=== PATIENT | female | born 1990 | race Caucasian/White ===

== ENCOUNTER 2016-12-20 21:46 | Emergency (ER) | payer SELFPAY ==
[2016-12-20 22:17] LABS: Urine Drugs of Abuse Note Disclamer
[2016-12-20 22:29] LABS: Bilirubin,Urine NEG (Negative); Blood,Urine NEG (Negative); Ketones,Urine NEG (Negative); Leukocyte Esterase,Urine NEG (Negative); Nitrite,Urine NEG (Negative); Protein,Urine <15 mg/dL mg/dL (Negative); Urobilinogen,Urine < 2.0 mg/dL (<2.0); WBC,Urine < 1.0 /HPF (0.0-6.0)
[2016-12-20 22:33] LABS: Eosinophils % (Auto) 1.1 % (0.0-4.3); Hematocrit 37.3 % (30.3-42.9); Hemoglobin 12.6 gm/dl (10.1-14.3); Mean Corpuscular HGB Conc 34 % (30-34); Mean Corpuscular Hemoglobin 30 pg (28-32); Mean Corpuscular Volume 90 fl (79-97); Platelet Count 289 K/mm3 (140-440); Red Blood Count 4.15 M/mm3 (3.65-5.03); Red Cell Distribution Width 13.9 % (13.2-15.2); White Blood Count 8.9 K/mm3 (4.5-11.0)
[2016-12-20 22:45] LABS: Anion Gap 21 mmol/L; BUN/Creatinine Ratio 16; Blood Urea Nitrogen 8 mg/dL (7-17); Calcium 8.7 mg/dL (8.4-10.2); Carbon Dioxide 24 mmol/L (22-30); Chloride 100.4 mmol/L (98-107); Glucose 78 mg/dL (65-100); Potassium 3.9 mmol/L (3.6-5.0); Sodium 141 mmol/L (137-145)
[2016-12-21] MEDS ORDERED: BOOSTRIX IM ONE (07:12)
[2016-12-21] MEDS ORDERED: DUONEB *Not for PRN Use IH ONE (07:15)
--- NOTE | 2016-12-21 07:17 | Emergency Department Report ---
ED Alcohol HPI - General Chief Complaint: Psych Stated Complaint: DETOX Time Seen by Provider: 12/21/16 06:58 Source: patient Mode of arrival: Ambulatory Limitations: No Limitations - History of Present Illness Initial Comments: 26-year-old female with a past medical history of alcohol abuse and asthma presents to the hospital requested alcohol detox. Last drink was prior to arrival. Patient states she fell hitting the concrete sustaining abrasions to the right side of her face. She denies LOC. She also states she ran into a [place] burst causing scratches to her neck. Patient is to daily alcohol use. Patient drinks beer daily. History of alcohol withdrawal seizures and tremors. Last rehabilitation was one month ago in [place]. Patient relocated here after [place]. Her fianc is also a patient requesting alcohol detox. Patient has ongoing right knee pain weeks. Patient feels like her knee is grinding together. Tetanus status unknown - Related Data Allergies Allergy/AdvReac Type Severity Reaction Status Date / Time peanut Allergy Rash Verified 12/20/16 22:04 ED Review of Systems ROS: Stated complaint: DETOX Other details as noted in HPI Comment: All other systems reviewed and negative Other: Constitutional: No fevers chills Eyes: No eye pain visual changes ENT: No ear pain or throat pain Neck: Denies pain Respiratory: Denies cough wheezing shortness of breath Cardiovascular: Denies chest pain, palpitations, syncope GI: Denies abdominal pain, nausea, vomiting, diarrhea : Denies dysuria Musculoskeletal: Denies back pain Skin: Denies rash, lesions, erythema Neurologic: Denies headache, numbness, weakness Psychiatric: Denies suicidal ideation, hallucinations ED Past Medical Hx - Past Medical History Previous Medical History?: Yes Hx Seizures: Yes (only once due to alcohol withdrawal) Hx Asthma: Yes Additional medical history: Cervical CA early stage, alcoholism - Surgical History Past Surgical History?: Yes Additional Surgical History: LEEP surgy - Social History Smoking Status: Current Every Day Smoker Substance Use Type: Alcohol ED Physical Exam - General Limitations: No Limitations - Other Other exam information: General: No limitations, patient is alert in no acute distress Head exam: Abrasions to right cheek and right lower face area with tenderness to palpation of the zygoma on the right Eyes exam: Normal appearance, pupils equal reactive to light, extraocular movements intact ENT: Moist mucous membrane, normal oropharynx Neck exam: Normal inspection, full range of motion, no meningismus nontender Respiratory exam: Mild right sided wheezing, no tachypnea or accessory muscle use Cardiovascular: Normal rate and rhythm, normal heart sounds Abdomen: Soft, nondistended, and nontender, with normal bowel sounds, no rebound, or guarding Extremity: Full range of motion normal inspection no deformity Back: Normal Inspection, full range of motion, no tenderness Neurologic: Alert, oriented x3, cranial nerves intact, no motor or sensory deficit Psychiatric: normal affect, normal mood Skin: Warm, dry, intact ED Course Vital Signs 12/20/16 12/21/16 12/21/16 22:04 06:36 06:38 Temperature 98.3 F Pulse Rate 92 H Pulse Rate [ Anterior Bilateral Throughout] Respiratory 18 Rate Respiratory Rate [Anterior Bilateral Throughout] Blood Pressure 114/84 125/52 Blood Pressure [Right] O2 Sat by Pulse 100 88 89 Oximetry 12/21/16 12/21/16 12/21/16 06:40 06:42 06:44 Temperature 98.5 F Pulse Rate 94 H Pulse Rate [ Anterior Bilateral Throughout] Respiratory 16 Rate Respiratory Rate [Anterior Bilateral Throughout] Blood Pressure 125/52 125/52 125/52 Blood Pressure 125/52 [Right] O2 Sat by Pulse 97 98 99 Oximetry 12/21/16 12/21/16 12/21/16 06:45 06:46 06:48 Temperature Pulse Rate Pulse Rate [ Anterior Bilateral Throughout] Respiratory Rate Respiratory Rate [Anterior Bilateral Throughout] Blood Pressure 111/77 111/77 111/77 Blood Pressure [Right] O2 Sat by Pulse 98 98 97 Oximetry 12/21/16 12/21/16 12/21/16 06:50 06:52 06:54 Temperature Pulse Rate Pulse Rate [ Anterior Bilateral Throughout] Respiratory Rate Respiratory Rate [Anterior Bilateral Throughout] Blood Pressure 111/77 111/77 111/77 Blood Pressure [Right] O2 Sat by Pulse 98 98 96 Oximetry 12/21/16 12/21/16 12/21/16 06:56 06:58 07:00 Temperature Pulse Rate Pulse Rate [ Anterior Bilateral Throughout] Respiratory Rate Respiratory Rate [Anterior Bilateral Throughout] Blood Pressure 111/77 111/77 88/51 Blood Pressure [Right] O2 Sat by Pulse 96 99 97 Oximetry 12/21/16 12/21/16 12/21/16 07:02 07:04 07:06 Temperature Pulse Rate Pulse Rate [ Anterior Bilateral Throughout] Respiratory Rate Respiratory Rate [Anterior Bilateral Throughout] Blood Pressure 88/51 88/51 125/52 Blood Pressure [Right] O2 Sat by Pulse 98 97 99 Oximetry 12/21/16 12/21/16 12/21/16 07:08 07:10 07:12 Temperature Pulse Rate Pulse Rate [ Anterior Bilateral Throughout] Respiratory Rate Respiratory Rate [Anterior Bilateral Throughout] Blood Pressure 114/95 114/95 114/95 Blood Pressure [Right] O2 Sat by Pulse 100 100 99 Oximetry 12/21/16 12/21/16 12/21/16 07:14 07:15 07:16 Temperature Pulse Rate Pulse Rate [ Anterior Bilateral Throughout] Respiratory Rate Respiratory Rate [Anterior Bilateral Throughout] Blood Pressure 114/95 106/69 106/69 Blood Pressure [Right] O2 Sat by Pulse 97 97 94 Oximetry 12/21/16 12/21/16 12/21/16 07:18 07:20 07:22 Temperature Pulse Rate Pulse Rate [ Anterior Bilateral Throughout] Respiratory Rate Respiratory Rate [Anterior Bilateral Throughout] Blood Pressure 106/69 106/69 106/69 Blood Pressure [Right] O2 Sat by Pulse 96 96 97 Oximetry 12/21/16 12/21/16 12/21/16 07:24 07:26 07:28 Temperature Pulse Rate Pulse Rate [ 98 H Anterior Bilateral Throughout] Respiratory Rate Respiratory 16 Rate [Anterior Bilateral Throughout] Blood Pressure 106/69 106/69 106/69 Blood Pressure [Right] O2 Sat by Pulse 97 96 100 Oximetry 12/21/16 12/21/16 12/21/16 07:30 07:32 07:34 Temperature Pulse Rate Pulse Rate [ Anterior Bilateral Throughout] Respiratory Rate Respiratory Rate [Anterior Bilateral Throughout] Blood Pressure 110/76 110/76 110/76 Blood Pressure [Right] O2 Sat by Pulse 100 100 100 Oximetry 12/21/16 12/21/16 12/21/16 07:36 07:38 07:40 Temperature Pulse Rate Pulse Rate [ 98 H Anterior Bilateral Throughout] Respiratory Rate Respiratory 16 Rate [Anterior Bilateral Throughout] Blood Pressure 110/76 110/76 110/76 Blood Pressure [Right] O2 Sat by Pulse 100 100 99 Oximetry 12/21/16 12/21/16 12/21/16 07:42 07:44 07:45 Temperature Pulse Rate Pulse Rate [ Anterior Bilateral Throughout] Respiratory Rate Respiratory Rate [Anterior Bilateral Throughout] Blood Pressure 110/76 110/76 106/71 Blood Pressure [Right] O2 Sat by Pulse 99 99 99 Oximetry 12/21/16 12/21/16 12/21/16 07:46 08:22 08:24 Temperature Pulse Rate Pulse Rate [ Anterior Bilateral Throughout] Respiratory Rate Respiratory Rate [Anterior Bilateral Throughout] Blood Pressure 106/71 106/71 106/71 Blood Pressure [Right] O2 Sat by Pulse 99 99 98 Oximetry 12/21/16 12/21/16 12/21/16 08:26 08:28 08:30 Temperature Pulse Rate Pulse Rate [ Anterior Bilateral Throughout] Respiratory Rate Respiratory Rate [Anterior Bilateral Throughout] Blood Pressure 106/71 106/71 106/71 Blood Pressure [Right] O2 Sat by Pulse 99 100 98 Oximetry 12/21/16 12/21/16 12/21/16 08:32 08:34 08:36 Temperature Pulse Rate Pulse Rate [ Anterior Bilateral Throughout] Respiratory Rate Respiratory Rate [Anterior Bilateral Throughout] Blood Pressure 106/71 106/71 106/71 Blood Pressure [Right] O2 Sat by Pulse 98 98 98 Oximetry 12/21/16 12/21/16 08:38 08:40 Temperature Pulse Rate Pulse Rate [ Anterior Bilateral Throughout] Respiratory Rate Respiratory Rate [Anterior Bilateral Throughout] Blood Pressure 106/71 110/70 Blood Pressure [Right] O2 Sat by Pulse 98 97 Oximetry - Consultations Consultation #1: 12/21/16 08:20 mental health consulted requested ED Medical Decision Making - Lab Data Result diagrams: 12/20/16 22:15 12/20/16 22:15 Lab Results 12/20/16 12/20/16 12/20/16 Range/Units 22:02 22:02 22:15 WBC (4.5-11.0) K/mm3 RBC (3.65-5.03) M/mm3 Hgb (10.1-14.3) gm/dl Hct (30.3-42.9) % MCV (79-97) fl MCH (28-32) pg MCHC (30-34) % RDW (13.2-15.2) % Plt Count (140-440) K/mm3 Lymph % (Auto) (13.4-35.0) % [place] % (Auto) (0.0-7.3) % Eos % (Auto) (0.0-4.3) % Baso % (Auto) (0.0-1.8) % Lymph # (1.2-5.4) K/mm3 [place] # (0.0-0.8) K/mm3 Eos # (0.0-0.4) K/mm3 Baso # (0.0-0.1) K/mm3 Seg Neutrophils % (40.0-70.0) % Seg Neutrophils # (1.8-7.7) K/mm3 Sodium 141 (137-145) mmol/L Potassium 3.9 (3.6-5.0) mmol/L Chloride 100.4 (98-107) mmol/L Carbon Dioxide 24 (22-30) mmol/L Anion Gap 21 mmol/L BUN 8 (7-17) mg/dL Creatinine 0.5 L (0.7-1.2) mg/dL Estimated GFR > 60 ml/min BUN/Creatinine Ratio 16 % Glucose 78 (65-100) mg/dL Calcium 8.7 (8.4-10.2) mg/dL Magnesium (1.7-2.3) mg/dL Total Bilirubin (0.1-1.2) mg/dL Direct Bilirubin (0-0.2) mg/dL AST (5-40) units/L ALT (7-56) units/L Alkaline Phosphatase (35-129) units/L Total Protein (6.3-8.2) g/dL Albumin (3.9-5) g/dL Albumin/Globulin Ratio % HCG, Qual (Negative) Urine Color Straw (Yellow) Urine Turbidity Clear (Clear) Urine pH 5.0 (5.0-7.0) Ur Specific [place] 1.003 (1.003-1.030) Urine Protein <15 mg/dl (Negative) mg/dL Urine Glucose (UA) Neg (Negative) mg/dL Urine Ketones Neg (Negative) mg/dL Urine Blood Neg (Negative) Urine Nitrite Neg (Negative) Urine Bilirubin Neg (Negative) Urine Urobilinogen < 2.0 (<2.0) mg/dL Ur Leukocyte Esterase Neg (Negative) Urine WBC (Auto) < 1.0 (0.0-6.0) /HPF Urine RBC (Auto) 1.0 (0.0-6.0) /HPF U Epithel Cells (Auto) 1.0 (0-13.0) /HPF Urine Opiates Screen Presumptive negative Urine Methadone Screen Presumptive negative Ur Barbiturates Screen Presumptive negative Ur Phencyclidine Scrn Presumptive negative Ur Amphetamines Screen Presumptive negative U Benzodiazepines Scrn Presumptive negative Urine Cocaine Screen Presumptive negative U Marijuana (THC) Screen Presumptive negative Drugs of Abuse Note Disclamer Plasma/Serum Alcohol (0-0.07) gm% 12/20/16 12/20/16 12/20/16 Range/Units 22:15 22:15 22:15 WBC 8.9 (4.5-11.0) K/mm3 RBC 4.15 (3.65-5.03) M/mm3 Hgb 12.6 (10.1-14.3) gm/dl Hct 37.3 (30.3-42.9) % MCV 90 (79-97) fl MCH 30 (28-32) pg MCHC 34 (30-34) % RDW 13.9 (13.2-15.2) % Plt Count 289 (140-440) K/mm3 Lymph % (Auto) 29.6 (13.4-35.0) % [place] % (Auto) 6.8 (0.0-7.3) % Eos % (Auto) 1.1 (0.0-4.3) % Baso % (Auto) 1.0 (0.0-1.8) % Lymph # 2.6 (1.2-5.4) K/mm3 [place] # 0.6 (0.0-0.8) K/mm3 Eos # 0.1 (0.0-0.4) K/mm3 Baso # 0.1 (0.0-0.1) K/mm3 Seg Neutrophils % 61.5 (40.0-70.0) % Seg Neutrophils # 5.5 (1.8-7.7) K/mm3 Sodium (137-145) mmol/L Potassium (3.6-5.0) mmol/L Chloride (98-107) mmol/L Carbon Dioxide (22-30) mmol/L Anion Gap mmol/L BUN (7-17) mg/dL Creatinine (0.7-1.2) mg/dL Estimated GFR ml/min BUN/Creatinine Ratio % Glucose (65-100) mg/dL Calcium (8.4-10.2) mg/dL Magnesium (1.7-2.3) mg/dL Total Bilirubin (0.1-1.2) mg/dL Direct Bilirubin (0-0.2) mg/dL AST (5-40) units/L ALT (7-56) units/L Alkaline Phosphatase (35-129) units/L Total Protein (6.3-8.2) g/dL Albumin (3.9-5) g/dL Albumin/Globulin Ratio % HCG, Qual Negative (Negative) Urine Color (Yellow) Urine Turbidity (Clear) Urine pH (5.0-7.0) Ur Specific [place] (1.003-1.030) Urine Protein (Negative) mg/dL Urine Glucose (UA) (Negative) mg/dL Urine Ketones (Negative) mg/dL Urine Blood (Negative) Urine Nitrite (Negative) Urine Bilirubin (Negative) Urine Urobilinogen (<2.0) mg/dL Ur Leukocyte Esterase (Negative) Urine WBC (Auto) (0.0-6.0) /HPF Urine RBC (Auto) (0.0-6.0) /HPF U Epithel Cells (Auto) (0-13.0) /HPF Urine Opiates Screen Urine Methadone Screen Ur Barbiturates Screen Ur Phencyclidine Scrn Ur Amphetamines Screen U Benzodiazepines Scrn Urine Cocaine Screen U Marijuana (THC) Screen Drugs of Abuse Note Plasma/Serum Alcohol 0.35 H (0-0.07) gm% 12/21/16 12/21/16 Range/Units 07:02 07:02 WBC (4.5-11.0) K/mm3 RBC (3.65-5.03) M/mm3 Hgb (10.1-14.3) gm/dl Hct (30.3-42.9) % MCV (79-97) fl MCH (28-32) pg MCHC (30-34) % RDW (13.2-15.2) % Plt Count (140-440) K/mm3 Lymph % (Auto) (13.4-35.0) % [place] % (Auto) (0.0-7.3) % Eos % (Auto) (0.0-4.3) % Baso % (Auto) (0.0-1.8) % Lymph # (1.2-5.4) K/mm3 [place] # (0.0-0.8) K/mm3 Eos # (0.0-0.4) K/mm3 Baso # (0.0-0.1) K/mm3 Seg Neutrophils % (40.0-70.0) % Seg Neutrophils # (1.8-7.7) K/mm3 Sodium (137-145) mmol/L Potassium (3.6-5.0) mmol/L Chloride (98-107) mmol/L Carbon Dioxide (22-30) mmol/L Anion Gap mmol/L BUN (7-17) mg/dL Creatinine (0.7-1.2) mg/dL Estimated GFR ml/min BUN/Creatinine Ratio % Glucose (65-100) mg/dL Calcium (8.4-10.2) mg/dL Magnesium 1.90 (1.7-2.3) mg/dL Total Bilirubin 0.30 (0.1-1.2) mg/dL Direct Bilirubin < 0.2 (0-0.2) mg/dL AST 21 (5-40) units/L ALT 10 (7-56) units/L Alkaline Phosphatase 88 (35-129) units/L Total Protein 7.0 (6.3-8.2) g/dL Albumin 4.3 (3.9-5) g/dL Albumin/Globulin Ratio 1.6 % HCG, Qual (Negative) Urine Color (Yellow) Urine Turbidity (Clear) Urine pH (5.0-7.0) Ur Specific [place] (1.003-1.030) Urine Protein (Negative) mg/dL Urine Glucose (UA) (Negative) mg/dL Urine Ketones (Negative) mg/dL Urine Blood (Negative) Urine Nitrite (Negative) Urine Bilirubin (Negative) Urine Urobilinogen (<2.0) mg/dL Ur Leukocyte Esterase (Negative) Urine WBC (Auto) (0.0-6.0) /HPF Urine RBC (Auto) (0.0-6.0) /HPF U Epithel Cells (Auto) (0-13.0) /HPF Urine Opiates Screen Urine Methadone Screen Ur Barbiturates Screen Ur Phencyclidine Scrn Ur Amphetamines Screen U Benzodiazepines Scrn Urine Cocaine Screen U Marijuana (THC) Screen Drugs of Abuse Note Plasma/Serum Alcohol 0.14 H (0-0.07) gm% - Radiology Data Radiology results: report reviewed CT head: No acute findings CT facial bones: No acute sinus Right knee x-ray: Normal - Medical Decision Making Patient is medically clear what alcohol is below 200. She would need to be monitored for alcohol withdrawal symptoms. Mental health evaluation has been requested to determine if patient meets criteria for inpatient alcohol detox Patient received mental health evaluation and was determined that patient does not meet criteria for inpatient detox and has been provided outpatient resources with [facility] and [facility] Patient's ride will be called to pick patient up. No signs of withdrawal prior to d/c Patient received by mouth thiamine and folate prior to DC as well as a tetanus shot - Differential Diagnosis ICH, facial fracture, abrasions, alcohol intoxication Critical Care Time: No Critical care attestation.: If time is entered above; I have spent that time in minutes in the direct care of this critically ill patient, excluding procedure time. ED Disposition Clinical Impression: Alcohol abuse, Abrasion of face, Chronic pain of right knee, Fall Disposition: DC-01 TO HOME OR SELFCARE Is pt being admited?: No Does the pt Need Aspirin: No Condition: Stable Instructions: Abuse of Alcohol (ED), Abrasion (ED), Knee Pain (ED) Additional Instructions: Follow-up as an outpatient for outpatient alcohol detox. Resources have been provided to you. Return if symptoms worsen Referrals: [facility] [Outside] - 3-5 Days [facility] [Other] - 3-5 Days (resources provided by mental health ) [facility] [Provider Group] - 3-5 Days Time of Disposition: 10:27
[2016-12-21] MEDS ORDERED: FOLVITE PO ONE (07:20)
[2016-12-21] MEDS ORDERED: VITAMIN B-1 PO ONE (07:20)
--- NOTE | 2016-12-21 07:30 | XRay Report ---
RIGHT KNEE, 2 views: History: Right knee pain. The bony architecture is intact without evidence of fracture or dislocation. No significant soft tissue abnormality is seen. IMPRESSION: Normal right knee.
[2016-12-21 07:35] LABS: Alanine Aminotransferase 10 units/L (7-56); Albumin 4.3 g/dL (3.9-5); Albumin/Globulin Ratio 1.6 %; Alkaline Phosphatase 88 units/L (35-129)
[2016-12-21 07:36] LABS: Bilirubin,Direct < 0.2 mg/dL (0-0.2)
--- NOTE | 2016-12-21 08:15 | Cat Scan Report ---
CT HEAD WITHOUT CONTRAST: HISTORY: Injury, fall. Serial contiguous axial images were obtained through the cranium. Intravenous contrast material was not administered. The ventricles are normal in size and appearance. There is no mass effect or midline shift. No areas of abnormally increased or decreased attenuation are seen. No mass lesion is seen. The mastoid air cells and visualized portions of the sinuses are normal. IMPRESSION: Cranial CT scan within normal limits.
--- NOTE | 2016-12-21 08:17 | Cat Scan Report ---
CT FACIAL BONES WITHOUT CONTRAST: HISTORY: Facial injury. TECHNIQUE: Helical CT images with sagittal and coronal CT reformations. FINDINGS: All paranasal sinuses are clear. No sinus wall fracture, fluid level or opacification. The orbital cavities are symmetric and intact. The mandible is intact. The skull base and upper cervical spine demonstrate no evidence for acute injury. IMPRESSION: Unremarkable CT of the facial bones.
[2016-12-21 08:43] VITALS: BP 110/70
[2016-12-21] MEDS ORDERED: ATIVAN PO PRN ×2 (09:00)
== END 2016-12-21 11:37 | disposition home or self-care (01) ==
LOC: ED 21:46
DX: S00.81XA Abrasion of other part of head, initial encounter (principal); G89.29 Other chronic pain; F10.10 Alcohol abuse, uncomplicated; M25.561 Pain in right knee; Z91.010 Allergy to peanuts; R56.9 Unspecified convulsions; J45.909 Unspecified asthma, uncomplicated; F17.200 Nicotine dependence, unspecified, uncomplicated; W18.00XA Striking against unspecified object with subsequent fall, initial encounter; Y93.89 Activity, other specified; Y92.89 Other specified places as the place of occurrence of the external cause; Y99.8 Other external cause status
CPT/HCPCS: 36415; 70450; 70486; 73560; 80048; 80074; 80307; 81001; 83735; 84703; 85025; 90471; 90715; 94640; 99285; G0480; 80320

== ENCOUNTER 2016-12-22 08:19 | Emergency (ER) | payer SELFPAY ==
[2016-12-22 08:26] VITALS: BP 131/88
[2016-12-22 08:41] LABS: Basophils % (Auto) 0.9 % (0.0-1.8); Hematocrit 36.8 % (30.3-42.9); Hemoglobin 11.8 gm/dl (10.1-14.3); Mean Corpuscular HGB Conc 32 % (30-34); Mean Corpuscular Hemoglobin 29 pg (28-32); Mean Corpuscular Volume 91 fl (79-97); Platelet Count 286 K/mm3 (140-440); Red Blood Count 4.04 M/mm3 (3.65-5.03); Red Cell Distribution Width 14.1 % (13.2-15.2); White Blood Count 10.4 K/mm3 (4.5-11.0)
[2016-12-22 08:59] LABS: Anion Gap 21 mmol/L; BUN/Creatinine Ratio 15; Blood Urea Nitrogen 6 mg/dL (7-17); Calcium 8.3 mg/dL (8.4-10.2); Carbon Dioxide 24 mmol/L (22-30); Chloride 93.9 mmol/L (98-107); Glucose 156 mg/dL (65-100); Potassium 4.5 mmol/L (3.6-5.0); Sodium 134 mmol/L (137-145)
== END 2016-12-22 08:30 | disposition left against medical advice (07) ==
LOC: ED 08:19
DX: Z53.21 Procedure and treatment not carried out due to patient leaving prior to being seen by health care provider (principal)
CPT/HCPCS: 36415; 80048; 84703; 85025; G0480; 80320

== ENCOUNTER 2017-10-08 00:30 | Inpatient (IN) | payer SELFPAY ==
[2017-10-08 02:56] LABS: Basophils % (Auto) 0.3 % (0.0-1.8); Hematocrit 42.4 % (30.3-42.9); Hemoglobin 14.2 gm/dl (10.1-14.3); Lymphocytes # (Auto) 0.6 K/mm3 (1.2-5.4); Lymphocytes % (Auto) 6.6 % (13.4-35.0); Mean Corpuscular HGB Conc 34 % (30-34); Mean Corpuscular Hemoglobin 29 pg (28-32); Mean Corpuscular Volume 86 fl (79-97); Monocytes # (Auto) 0.5 K/mm3 (0.0-0.8); Monocytes % (Auto) 5.7 % (0.0-7.3); Red Blood Count 4.91 M/mm3 (3.65-5.03); Red Cell Distribution Width 16.3 % (13.2-15.2)
[2017-10-08 02:57] LABS: Platelet Count 97 K/mm3 (140-440)
[2017-10-08 03:20] LABS: Albumin 4.6 g/dL (3.9-5); BUN/Creatinine Ratio 8; Blood Urea Nitrogen 4 mg/dL (7-17); Calcium 9.1 mg/dL (8.4-10.2); Hemolysis Index 94
[2017-10-08 03:32] LABS: Alanine Aminotransferase 50 units/L (7-56)
[2017-10-08] MEDS ORDERED: NACL 0.9% 1000 ML 1,000 ML IV ONE (05:05)
[2017-10-08] MEDS ORDERED: VITAMIN B-1 100 MG, FOLVITE 1 MG, INFUVITE 10 ML in NACL 0.9% 1000 ML 1,000 ML IV ONE (06:19)
[2017-10-08] MEDS ORDERED: ATIVAN IV PRN ×3 (06:19)
--- NOTE | 2017-10-08 06:23 | Emergency Department Report ---
ED General Adult HPI - General Chief complaint: Seizure Stated complaint: SEIZURE Time Seen by Provider: 10/08/17 06:12 Source: patient, EMS (EMS notes are reviewed), RN notes reviewed, old records reviewed Mode of arrival: Stretcher Limitations: No Limitations - History of Present Illness Initial comments: This is a 27-year-old female with a history of alcohol abuse, bipolar, alcohol withdrawal seizure, who is brought to the hospital by EMS for seizure. Patient reports drinking alcohol every day. She reports her last drink was yesterday. She thinks that she passed out or had a seizure. She is not certain. She feels very shaky at this time. She denies severe headache, neck pain, chest pain, abdominal pain, shortness of breath, urinary symptoms. As per EMS documentation, patient was found laying supine in the bed, and appeared to be lethargic and postictal. Apparently the patient's [id number] stated she was going through delirium tremens. Family further informed EMS that this is happened approximately 2 years ago. The patient reports that she feels shaky and generally weak. Her symptoms are constant, they worse with attempted physical exertion and decreased with rest. She is not homicidal or suicidal. She is interested in detox. She is amenable to hospitalization. -: Sudden Severity scale (0 -10): 0 Improves with: none Worsens with: none Associated Symptoms: malaise, seizure, syncope, weakness. denies: confusion, chest pain, cough, diaphoresis, fever/chills - Related Data Allergies Allergy/AdvReac Type Severity Reaction Status Date / Time peanut Allergy Rash Verified 12/20/16 22:04 ED Review of Systems ROS: Stated complaint: SEIZURE Other details as noted in HPI Constitutional: malaise Eyes: denies: eye discharge ENT: denies: epistaxis Respiratory: denies: cough Cardiovascular: syncope. denies: chest pain Gastrointestinal: denies: abdominal pain, vomiting Genitourinary: denies: dysuria Musculoskeletal: back pain Skin: denies: lesions Neurological: weakness Psychiatric: anxiety. denies: homicidal thoughts, suicidal thoughts Hematological/Lymphatic: easy bruising ED Past Medical Hx - Past Medical History Hx Seizures: Yes (only once due to alcohol withdrawal) Hx Asthma: Yes Additional medical history: Cervical CA early stage, alcoholism - Surgical History Additional Surgical History: LEEP surgy - Social History Smoking Status: Current Every Day Smoker Substance Use Type: None ED Physical Exam - General Limitations: No Limitations General appearance: alert, in no apparent distress - Head Head exam: Present: atraumatic, normocephalic - Eye Eye exam: Present: normal appearance, PERRL, EOMI. Absent: nystagmus - ENT ENT exam: Present: mucous membranes dry, normal external ear exam, other ( active tongue fasciculations noted) - Neck Neck exam: Present: normal inspection, full ROM. Absent: tenderness, meningismus - Respiratory Respiratory exam: Present: normal lung sounds bilaterally. Absent: respiratory distress - Cardiovascular Cardiovascular Exam: Present: normal rhythm, tachycardia, normal heart sounds. Absent: systolic murmur, diastolic murmur, rubs, gallop - GI/Abdominal GI/Abdominal exam: Present: soft, normal bowel sounds. Absent: distended, tenderness, guarding, rebound, rigid, pulsatile mass - Extremities Exam Extremities exam: Present: full ROM (ecchymosis noted in various stages of healing.), other (2+ pulses noted in the bilateral upper, lower extremities. Compartments soft. No long bony tenderness. The pelvis is stable.). Absent: pedal edema, joint swelling, calf tenderness - Back Exam Back exam: Present: normal inspection, full ROM. Absent: tenderness, CVA tenderness (R), paraspinal tenderness, vertebral tenderness - Neurological Exam Neurological exam: Present: alert, oriented X3, CN II-XII intact, other ( Extraocular movements intact. Tongue midline. No facial droop. Facial sensation intact to light touch in the V1, V2, V3 distribution bilaterally. 5 and 5 strength in 4 extremities.. Sensation is intact to light touch in 4 extremities.). Absent: motor sensory deficit - Psychiatric Psychiatric exam: Present: anxious. Absent: homicidal ideation, suicidal ideation - Skin Skin exam: Present: warm, ecchymosis ED Course Vital Signs 10/08/17 10/08/17 10/08/17 02:33 05:12 05:27 Temperature 99.1 F 98.9 F Pulse Rate 99 H 87 Respiratory 18 20 20 Rate Blood Pressure 122/93 Blood Pressure 101/64 [Left] O2 Sat by Pulse 99 100 100 Oximetry 10/08/17 10/08/17 06:36 07:16 Temperature 99.0 F Pulse Rate 78 81 Respiratory 20 20 Rate Blood Pressure Blood Pressure 102/60 116/87 [Left] O2 Sat by Pulse 97 100 Oximetry ED Medical Decision Making - Lab Data Result diagrams: 10/08/17 02:44 10/08/17 02:44 Vital Signs 10/08/17 10/08/17 10/08/17 02:33 05:12 05:27 Temperature 99.1 F 98.9 F Pulse Rate 99 H 87 Respiratory 18 20 20 Rate Blood Pressure 122/93 Blood Pressure 101/64 [Left] O2 Sat by Pulse 99 100 100 Oximetry 10/08/17 10/08/17 06:36 07:16 Temperature 99.0 F Pulse Rate 78 81 Respiratory 20 20 Rate Blood Pressure Blood Pressure 102/60 116/87 [Left] O2 Sat by Pulse 97 100 Oximetry Lab Results 10/08/17 10/08/17 10/08/17 Range/Units 02:44 02:44 02:44 WBC 9.0 (4.5-11.0) K/mm3 RBC 4.91 (3.65-5.03) M/mm3 Hgb 14.2 (10.1-14.3) gm/dl Hct 42.4 (30.3-42.9) % MCV 86 (79-97) fl MCH 29 (28-32) pg MCHC 34 (30-34) % RDW 16.3 H (13.2-15.2) % Plt Count 97 L (140-440) K/mm3 Lymph % (Auto) 6.6 L (13.4-35.0) % [place] % (Auto) 5.7 (0.0-7.3) % Eos % (Auto) 0.0 (0.0-4.3) % Baso % (Auto) 0.3 (0.0-1.8) % Lymph # 0.6 L (1.2-5.4) K/mm3 [place] # 0.5 (0.0-0.8) K/mm3 Eos # 0.0 (0.0-0.4) K/mm3 Baso # 0.0 (0.0-0.1) K/mm3 Seg Neutrophils % 87.4 H (40.0-70.0) % Seg Neutrophils # 7.9 H (1.8-7.7) K/mm3 PT (12.2-14.9) Sec. INR (0.87-1.13) APTT (24.2-36.6) Sec. Sodium 128 L (137-145) mmol/L Potassium 5.1 H (3.6-5.0) mmol/L Chloride 77.4 L (98-107) mmol/L Carbon Dioxide 31 H (22-30) mmol/L Anion Gap 25 mmol/L BUN 4 L (7-17) mg/dL Creatinine 0.5 L (0.7-1.2) mg/dL Estimated GFR > 60 ml/min BUN/Creatinine Ratio 8 % Glucose 107 H (65-100) mg/dL Lactic Acid (0.7-2.0) mmol/L Calcium 9.1 (8.4-10.2) mg/dL Total Bilirubin 1.70 H (0.1-1.2) mg/dL AST 269 H (5-40) units/L ALT 50 (7-56) units/L Alkaline Phosphatase 135 H (35-129) units/L Ammonia (25-60) umol/L Total Protein 8.3 H (6.3-8.2) g/dL Albumin 4.6 (3.9-5) g/dL Albumin/Globulin Ratio 1.2 % HCG, Qual (Negative) Plasma/Serum Alcohol 0.02 (0-0.07) % 10/08/17 10/08/17 10/08/17 Range/Units 02:44 06:42 06:42 WBC (4.5-11.0) K/mm3 RBC (3.65-5.03) M/mm3 Hgb (10.1-14.3) gm/dl Hct (30.3-42.9) % MCV (79-97) fl MCH (28-32) pg MCHC (30-34) % RDW (13.2-15.2) % Plt Count (140-440) K/mm3 Lymph % (Auto) (13.4-35.0) % [place] % (Auto) (0.0-7.3) % Eos % (Auto) (0.0-4.3) % Baso % (Auto) (0.0-1.8) % Lymph # (1.2-5.4) K/mm3 [place] # (0.0-0.8) K/mm3 Eos # (0.0-0.4) K/mm3 Baso # (0.0-0.1) K/mm3 Seg Neutrophils % (40.0-70.0) % Seg Neutrophils # (1.8-7.7) K/mm3 PT 12.8 (12.2-14.9) Sec. INR 0.92 (0.87-1.13) APTT 22.5 L (24.2-36.6) Sec. Sodium (137-145) mmol/L Potassium (3.6-5.0) mmol/L Chloride (98-107) mmol/L Carbon Dioxide (22-30) mmol/L Anion Gap mmol/L BUN (7-17) mg/dL Creatinine (0.7-1.2) mg/dL Estimated GFR ml/min BUN/Creatinine Ratio % Glucose (65-100) mg/dL Lactic Acid 1.00 (0.7-2.0) mmol/L Calcium (8.4-10.2) mg/dL Total Bilirubin (0.1-1.2) mg/dL AST (5-40) units/L ALT (7-56) units/L Alkaline Phosphatase (35-129) units/L Ammonia (25-60) umol/L Total Protein (6.3-8.2) g/dL Albumin (3.9-5) g/dL Albumin/Globulin Ratio % HCG, Qual Negative (Negative) Plasma/Serum Alcohol (0-0.07) % 10/08/17 Range/Units 06:42 WBC (4.5-11.0) K/mm3 RBC (3.65-5.03) M/mm3 Hgb (10.1-14.3) gm/dl Hct (30.3-42.9) % MCV (79-97) fl MCH (28-32) pg MCHC (30-34) % RDW (13.2-15.2) % Plt Count (140-440) K/mm3 Lymph % (Auto) (13.4-35.0) % [place] % (Auto) (0.0-7.3) % Eos % (Auto) (0.0-4.3) % Baso % (Auto) (0.0-1.8) % Lymph # (1.2-5.4) K/mm3 [place] # (0.0-0.8) K/mm3 Eos # (0.0-0.4) K/mm3 Baso # (0.0-0.1) K/mm3 Seg Neutrophils % (40.0-70.0) % Seg Neutrophils # (1.8-7.7) K/mm3 PT (12.2-14.9) Sec. INR (0.87-1.13) APTT (24.2-36.6) Sec. Sodium (137-145) mmol/L Potassium (3.6-5.0) mmol/L Chloride (98-107) mmol/L Carbon Dioxide (22-30) mmol/L Anion Gap mmol/L BUN (7-17) mg/dL Creatinine (0.7-1.2) mg/dL Estimated GFR ml/min BUN/Creatinine Ratio % Glucose (65-100) mg/dL Lactic Acid (0.7-2.0) mmol/L Calcium (8.4-10.2) mg/dL Total Bilirubin (0.1-1.2) mg/dL AST (5-40) units/L ALT (7-56) units/L Alkaline Phosphatase (35-129) units/L Ammonia 27.0 (25-60) umol/L Total Protein (6.3-8.2) g/dL Albumin (3.9-5) g/dL Albumin/Globulin Ratio % HCG, Qual (Negative) Plasma/Serum Alcohol (0-0.07) % - EKG Data 10/08/17 07:59 Normal sinus, 83 beats per minute, normal axis, QTC prolonged, abnormal EKG, not a STEMI - Radiology Data Radiology results: report reviewed, image reviewed X-ray of the chest is negative for acute disease. Noncontrast CT scan of the brain is negative. - Medical Decision Making Differential diagnosis, including but not limited to: Alcohol dependence, alcohol withdrawal seizure, alcohol withdrawal, electrolyte derangement, beer podomania Assessment and plan: 27-year-old female with alcohol withdrawal seizure, active fasciculations, tremulous, clinically sober at this time, in alcohol withdrawal. Does not require 1013 at this time. Patient will be started on the ciwa protocol Hyponatremia likely secondary to beer consumption and dehydration. EKG also shows QTC prolongation. Noncontrast CT scan of the brain is negative. Low- grade temperature appreciated, urinalysis is pending at this time. Case was presented to the Hospital physician, Dr. Perea, who has graciously accepted the patient to the medical service. Psychiatry consult is pending to assist with recommendations for alcohol withdrawal. Critical care attestation.: If time is entered above; I have spent that time in minutes in the direct care of this critically ill patient, excluding procedure time. ED Disposition Clinical Impression: Hyponatremia Alcohol withdrawal seizure Qualifiers: Complication of substance-induced condition: with unspecified complication Qualified Code(s): F10.239 - Alcohol dependence with withdrawal, unspecified Disposition: 09 OP ADMIT IP TO THIS HOSP Is pt being admited?: Yes Condition: Good Referrals: PRIMARY CARE,MD [Primary Care Provider] - 3-5 Days
--- NOTE | 2017-10-08 06:49 | XRay Report ---
FINAL REPORT EXAM: XR CHEST 1V AP HISTORY: etoh withdrawl seizure ? pneuimoan TECHNIQUE: AP portable view(s) of the chest obtained. PRIORS: None. FINDINGS: No mediastinal shift. Cardiac silhouette is not enlarged. No pneumothorax, effusion, or focal pulmonary opacity identified. No acute skeletal findings. IMPRESSION: No acute pulmonary finding identified.
[2017-10-08 07:05] LABS: INR 0.92 (0.87-1.13); Partial Thromboplastin Time 22.5 Sec. (24.2-36.6)
--- NOTE | 2017-10-08 07:44 | Cat Scan Report ---
CT HEAD WITHOUT CONTRAST: HISTORY: Seizure. TECHNIQUE: Sequential 2.5mm CT images. COMPARISON: 12/21/16. FINDINGS: Cerebral Parenchyma: Within normal limits. Cerebellum: Within normal limits. Brainstem: Within normal limits. Ventricles: Normal. Sella: Normal. Extra-axial spaces: Normal. Basal Cisterns: Normal. Intracranial Hemorrhage: None. Midline Shift: None. Calvarium: Normal. Sinuses: Normal. Mastoid Air Cells: Normal. Visualized Orbits: Normal. IMPRESSION: Cranial CT scan within normal limits.
[2017-10-08] MEDS ORDERED: MOTRIN PO PRN (09:52)
[2017-10-08] MEDS ORDERED: SODIUM CHLORIDE FLUSH SYRINGE 10 ML IV PRN (09:52)
[2017-10-08] MEDS ORDERED: ZOFRAN IV PRN (09:52)
[2017-10-08] MEDS ORDERED: ALUM-MAG HYDROX-SIMETH 200-200-20MG/5ML PO PRN (10:00)
[2017-10-08 10:30] LABS: Bilirubin,Urine NEG (Negative); Blood,Urine SM (Negative); Color,Urine Yellow (Yellow); Mucus,Urine FEW /HPF; Protein,Urine <15 mg/dL mg/dL (Negative); Urobilinogen,Urine < 2.0 mg/dL (<2.0)
[2017-10-08 10:40] LABS: Amphetamine Screen,Urine PRESUMPTIVE NEGATIVE; Benzodiazepines Screen,Urine PRESUMPTIVE NEGATIVE; Methadone Screen,Urine PRESUMPTIVE NEGATIVE; Opiate Screen,Urine PRESUMPTIVE NEGATIVE
[2017-10-08] MEDS: SODIUM CHLORIDE FLUSH SYRINGE 10 ML IV SCH ×2 (10:55→22:04)
[2017-10-08 11:06] LABS: Cannabinoid Screen,Urine PRESUMPTIVE POSITIVE; Cocaine Screen,Urine PRESUMPTIVE POSITIVE
[2017-10-08] MEDS: LIBRIUM PO SCH ×3 (11:08→21:15)
[2017-10-08] MEDS: PEPCID PO SCH ×2 (11:08→21:15)
--- NOTE | 2017-10-08 11:34 | Ultrasound Report ---
FINAL REPORT EXAM: US ABDOMEN LIMITED HISTORY: ELEVATED LFT LEVELS TECHNIQUE: Limited abdomen ultrasound. PRIORS: None currently available. FINDINGS: Liver: Liver is echogenic. This may represent fatty infiltration or hepatocellular disease. No distinct lesions. Gallbladder: No gallstones or sludge. Wall is within normal limits. 5.1 mm common bile duct is within normal limits. Pancreas: Provided images are unremarkable. Right kidney: 9.3 cm. Echogenic focus in the upper right kidney measures 6.6 mm. No hydronephrosis. Proximal aorta measures 1.7 cm and is within normal limits. IVC is patent. No free fluid. IMPRESSION: Fatty liver. Nonobstructing right renal stone. Differential diagnosis includes prominent pelvic fat.
--- NOTE | 2017-10-08 12:59 | History and Physical Report ---
History of Present Illness Date of examination: 10/08/17 Date of admission: 10/08/17 09:52 Chief complaint: Twitching History of present illness: Patient is a 27 year old female with history of bipolar disorder and alcohol abuse who was brought to the ED via EMS on account of twitching. Patient admits to drinking heavily daily and her last drink was yesterday. EMS was called because family member thought she was going into DT. She has associated nausea without vomiting and syncopal episode. She denies headaches, dizziness, chest pain, shortness of breath, palpitation, fever, chills or cough. No abdominal pain, constipation, diarrhea, dysuria or frequency. Past History Past Medical History: seizures, other (bipolar disorder, alcohol abuse, asthma, early stage cervical ca) Past Surgical History: No surgical history Social history: smoking (1 pack of cigarette per day since 10 years old), alcohol abuse (six bottles of 24 ounces of beer and liquor per day, since 14 years old), other (she denies illicit drug use) Family history: other (history of alcoholism) Medications and Allergies Allergies Allergy/AdvReac Type Severity Reaction Status Date / Time peanut Allergy Rash Verified 12/20/16 22:04 Home Medications Medication Instructions Recorded Confirmed Last Taken Type No Known Home Medications [No 10/08/17 10/08/17 Unknown History Reported Home Medications] Active Meds: Active Medications Al Hydrox/Mg Hydrox/Simethicone (Alum-Mag Hydrox-Simeth [id number]/5ml) 30 ml PO Q4H PRN PRN Reason: Indigestion Chlordiazepoxide HCl (Librium) 25 mg PO TID [facility] Last Admin: 10/08/17 11:08 Dose: 25 mg Famotidine (Pepcid) 20 mg PO BID [facility] Last Admin: 10/08/17 11:08 Dose: 20 mg Sodium Chloride (Nacl 0.9% 1000 Ml) 1,000 mls @ 100 mls/hr IV DIRECT [facility] Thiamine HCl 100 mg/ Folic Acid 1 mg/ Multivitamins/Minerals 10 ml/ Sodium Chloride 1,011.2 mls @ 250 mls/hr IV ONCE ONE Stop: 10/09/17 14:02 Ibuprofen (Motrin) 600 mg PO Q6H PRN PRN Reason: Pain, Mild (1-3) Lorazepam (Ativan) 2 mg IV Q1HR PRN PRN Reason: CIWA-Ar 8-15 Lorazepam (Ativan) 4 mg IV Q1HR PRN PRN Reason: CIWA-Ar 16-25 Lorazepam (Ativan) 4 mg IV Q15MIN PRN PRN Reason: CIWA-Ar >25 Ondansetron HCl (Zofran) 4 mg IV Q8H PRN PRN Reason: Nausea And Vomiting Sodium Chloride (Sodium Chloride Flush Syringe 10 Ml) 10 ml IV BID [facility] Last Admin: 10/08/17 10:55 Dose: 10 ml Sodium Chloride (Sodium Chloride Flush Syringe 10 Ml) 10 ml IV PRN PRN PRN Reason: LINE FLUSH Review of Systems All systems: negative (except as documented in the HPI, all other systems were reviewed and negative) Exam - Constitutional Vitals: Temp Pulse Resp BP Pulse Ox 98.8 F 64 15 111/76 98 10/08/17 12:20 10/08/17 12:20 10/08/17 12:20 10/08/17 12:20 10/08/17 12:20 General appearance: Present: no acute distress, other (Alert and oriented 3) - EENT Eyes: Present: PERRL, EOM intact ENT: hearing intact, clear oral mucosa - Neck Neck: Present: supple, normal ROM - Respiratory Respiratory effort: normal Respiratory: bilateral: CTA - Cardiovascular Rhythm: regular Heart Sounds: Present: S1 & S2. Absent: rub, click - Extremities Extremities: pulses symmetrical, No edema Peripheral Pulses: within normal limits - Abdominal General gastrointestinal: Present: soft, non-tender, non-distended, normal bowel sounds - Integumentary Integumentary: Present: clear, warm, dry - Musculoskeletal Musculoskeletal: gait normal, strength equal bilaterally - Neurologic Neurologic: CNII-XII intact, moves all extremities Results - Labs CBC & Chem 7: 10/08/17 02:44 10/08/17 02:44 Labs: Laboratory Last Values WBC 9.0 K/mm3 (4.5-11.0) 10/08/17 02:44 RBC 4.91 M/mm3 (3.65-5.03) 10/08/17 02:44 Hgb 14.2 gm/dl (10.1-14.3) 10/08/17 02:44 Hct 42.4 % (30.3-42.9) 10/08/17 02:44 MCV 86 fl (79-97) 10/08/17 02:44 MCH 29 pg (28-32) 10/08/17 02:44 MCHC 34 % (30-34) 10/08/17 02:44 RDW 16.3 % (13.2-15.2) H 10/08/17 02:44 Plt Count 97 K/mm3 (140-440) L 10/08/17 02:44 Lymph % (Auto) 6.6 % (13.4-35.0) L 10/08/17 02:44 [place] % (Auto) 5.7 % (0.0-7.3) 10/08/17 02:44 Eos % (Auto) 0.0 % (0.0-4.3) 10/08/17 02:44 Baso % (Auto) 0.3 % (0.0-1.8) 10/08/17 02:44 Lymph # 0.6 K/mm3 (1.2-5.4) L 10/08/17 02:44 [place] # 0.5 K/mm3 (0.0-0.8) 10/08/17 02:44 Eos # 0.0 K/mm3 (0.0-0.4) 10/08/17 02:44 Baso # 0.0 K/mm3 (0.0-0.1) 10/08/17 02:44 Seg Neutrophils % 87.4 % (40.0-70.0) H 10/08/17 02:44 Seg Neutrophils # 7.9 K/mm3 (1.8-7.7) H 10/08/17 02:44 PT 12.8 Sec. (12.2-14.9) 10/08/17 06:42 INR 0.92 (0.87-1.13) 10/08/17 06:42 APTT 22.5 Sec. (24.2-36.6) L 10/08/17 06:42 Sodium 128 mmol/L (137-145) L 10/08/17 02:44 Potassium 5.1 mmol/L (3.6-5.0) H 10/08/17 02:44 Chloride 77.4 mmol/L (98-107) L 10/08/17 02:44 Carbon Dioxide 31 mmol/L (22-30) H 10/08/17 02:44 Anion Gap 25 mmol/L 10/08/17 02:44 BUN 4 mg/dL (7-17) L 10/08/17 02:44 Creatinine 0.5 mg/dL (0.7-1.2) L 10/08/17 02:44 Estimated GFR > 60 ml/min 10/08/17 02:44 BUN/Creatinine Ratio 8 % 10/08/17 02:44 Glucose 107 mg/dL (65-100) H 10/08/17 02:44 Lactic Acid 1.00 mmol/L (0.7-2.0) 10/08/17 06:42 Calcium 9.1 mg/dL (8.4-10.2) 10/08/17 02:44 Magnesium 2.20 mg/dL (1.7-2.3) 10/08/17 06:35 Total Bilirubin 1.70 mg/dL (0.1-1.2) H 10/08/17 02:44 AST 269 units/L (5-40) H 10/08/17 02:44 ALT 50 units/L (7-56) 10/08/17 02:44 Alkaline Phosphatase 135 units/L (35-129) H 10/08/17 02:44 Ammonia 27.0 umol/L (25-60) 10/08/17 06:42 Total Creatine Kinase 846 units/L (30-135) H 10/08/17 06:35 Total Protein 8.3 g/dL (6.3-8.2) H 10/08/17 02:44 Albumin 4.6 g/dL (3.9-5) 10/08/17 02:44 Albumin/Globulin Ratio 1.2 % 10/08/17 02:44 HCG, Qual Negative (Negative) 10/08/17 02:44 Urine Color Yellow (Yellow) 10/08/17 09:27 Urine Turbidity Clear (Clear) 10/08/17 09:27 Urine pH 6.0 (5.0-7.0) 10/08/17 09:27 Ur Specific [place] 1.009 (1.003-1.030) 10/08/17 09:27 Urine Protein <15 mg/dl mg/dL (Negative) 10/08/17 09:27 Urine Glucose (UA) Neg mg/dL (Negative) 10/08/17 09:27 Urine Ketones 80 mg/dL (Negative) 10/08/17 09:27 Urine Blood Sm (Negative) 10/08/17 09:27 Urine Nitrite Neg (Negative) 10/08/17 09:27 Urine Bilirubin Neg (Negative) 10/08/17 09:27 Urine Urobilinogen < 2.0 mg/dL (<2.0) 10/08/17 09:27 Ur Leukocyte Esterase Neg (Negative) 10/08/17 09:27 Urine WBC (Auto) 2.0 /HPF (0.0-6.0) 10/08/17 09:27 Urine RBC (Auto) 2.0 /HPF (0.0-6.0) 10/08/17 09:27 U Epithel Cells (Auto) 5.0 /HPF (0-13.0) 10/08/17 09:27 Urine Mucus Few /HPF 10/08/17 09:27 Urine Opiates Screen Presumptive negative 10/08/17 09:27 Urine Methadone Screen Presumptive negative 10/08/17 09:27 Ur Barbiturates Screen Presumptive negative 10/08/17 09:27 Ur Phencyclidine Scrn Presumptive negative 10/08/17 09:27 Ur Amphetamines Screen Presumptive negative 10/08/17 09:27 U Benzodiazepines Scrn Presumptive negative 10/08/17 09:27 Urine Cocaine Screen Presumptive positive 10/08/17 09:27 U Marijuana (THC) Screen Presumptive positive 10/08/17 09:27 Drugs of Abuse Note Disclamer 10/08/17 09:27 Plasma/Serum Alcohol 0.02 % (0-0.07) 10/08/17 02:44 Assessment and Plan Assessment and plan: Acute alcohol withdrawal -on CIWA protocol Syncope secondary to alcohol abuse -Stable Transaminitis secondary to alcohol abuse -Will do further evaluation with abdominal ultrasound Hyponatremia -On IV fluid -will monitor sodium level Hyperkalemia -On IV fluid -will monitor potassium level History of alcohol dependence -Patient counseled on cessation -Help offered but patient declined History of bipolar disorder -For out patient follow-up Prophylaxis -DVT prophylaxis with SCD -GI prophylaxis with famotidine 38 minutes spent coordinating care including counseling
[2017-10-08] MEDS: NACL 0.9% 1000 ML 1,000 ML IV SCH (15:08)
[2017-10-08] MEDS ORDERED: PNEUMOVAX 23 IM ONE (18:42)
[2017-10-09] MEDS: NACL 0.9% 1000 ML 1,000 ML IV SCH ×2 (00:28→14:13)
[2017-10-09 06:37] LABS: Alanine Aminotransferase 30 units/L (7-56); BUN/Creatinine Ratio 8; Blood Urea Nitrogen 3 mg/dL (7-17); Calcium 8.1 mg/dL (8.4-10.2); Hemolysis Index 3
[2017-10-09] MEDS ORDERED: MAGNESIUM SULFATE IV ONE (07:46)
[2017-10-09] MEDS: LIBRIUM PO SCH ×2 (08:29→14:12)
[2017-10-09] MEDS: KCL 10MEQ/100ML 10 MEQ/100 ML BAG IV SCH ×3 (09:10→17:51)
[2017-10-09] MEDS ORDERED: VITAMIN B-1 100 MG, FOLVITE 1 MG, INFUVITE 10 ML in NACL 0.9% 1000 ML 1,000 ML IV ONE (10:00)
[2017-10-09] MEDS ORDERED: MAGNESIUM SULFATE 1 GM in NACL 0.9% 50 ML IV ONE (10:00)
[2017-10-09] MEDS: PEPCID PO SCH (14:12)
--- NOTE | 2017-10-09 14:17 | Progress Note ---
Assessment and Plan Assessment and plan: Patient is a 27 year old female with history of bipolar disorder and alcohol abuse who was brought to the ED via EMS on account of twitching. Patient admits to drinking heavily daily and her last drink was yesterday. EMS was called because family member thought she was going into DT. She has associated nausea without vomiting and syncopal episode. She denies headaches, dizziness, chest pain, shortness of breath, palpitation, fever, chills or cough. No abdominal pain, constipation, diarrhea, dysuria or frequency. Acute alcohol withdrawal -on [facility] protocol Alcohol withdrawal seizure -Seizure precautions -Patient instructed to come into [place] law she is to avoid cooperative and able to rise missionary and 2) Primary physician Syncope secondary to alcohol abuse -Stable Transaminitis secondary to alcohol abuse -Will do further evaluation with abdominal ultrasound Hyponatremia -On IV fluid -will monitor sodium level Hyperkalemia/now with hypokalemia -Replace -On IV fluid -will monitor potassium level Nonobstructive stone -Discussed with patient. Follow urology outpatient History of alcohol dependence -Patient counseled on cessation -Help offered but patient declined History of bipolar disorder -For out patient follow-up Prophylaxis -DVT prophylaxis with SCD -GI prophylaxis with famotidine History Interval history: Patient seen and examined this morning still slurred speech and tremor. Denies any shortness of breath nausea vomiting. No seizure noted by nursing staff. Hospitalist Physical - Physical exam Narrative exam: VITAL SIGNS: Reviewed. GENERAL: The patient appeared well nourished and normally developed. Vital signs as documented. HEAD: No signs of head trauma. EYES: Pupils are equal. Extraocular motions intact. EARS: Hearing grossly intact. MOUTH: Oropharynx is normal. NECK: No adenopathy, no JVD. CHEST: Chest with clear breath sounds bilaterally. No wheezes, rales, or rhonchi. CARDIAC: Regular rate and rhythm. S1 and S2, without murmurs, gallops, or rubs. VASCULAR: No Edema. Peripheral pulses normal and equal in all extremities. ABDOMEN: Soft, without detectable tenderness. No sign of distention. No rebound or guarding, and no masses palpated. Bowel Sounds normal. MUSCULOSKELETAL: Good range of motion of all major joints. Extremities without clubbing, cyanosis or edema. NEUROLOGIC EXAM: Awake but lethargic and oriented x 3. No focal sensory or strength deficits. Desaturation noted. Follows commands. PSYCHIATRIC: Mood normal. SKIN: Multiple tattoos, multiple skin blotches lesions. - Constitutional Vitals: Temp Pulse Resp BP Pulse Ox 98.3 F 79 16 127/83 99 10/09/17 13:21 10/09/17 13:21 10/09/17 13:21 10/09/17 13:21 10/09/17 13:21 General appearance: Present: no acute distress, other (Alert and oriented 3) Results - Labs CBC & Chem 7: 10/08/17 02:44 10/09/17 08:11 Labs: Laboratory Last Values WBC 9.0 K/mm3 (4.5-11.0) 10/08/17 02:44 RBC 4.91 M/mm3 (3.65-5.03) 10/08/17 02:44 Hgb 14.2 gm/dl (10.1-14.3) 10/08/17 02:44 Hct 42.4 % (30.3-42.9) 10/08/17 02:44 MCV 86 fl (79-97) 10/08/17 02:44 MCH 29 pg (28-32) 10/08/17 02:44 MCHC 34 % (30-34) 10/08/17 02:44 RDW 16.3 % (13.2-15.2) H 10/08/17 02:44 Plt Count 97 K/mm3 (140-440) L 10/08/17 02:44 Lymph % (Auto) 6.6 % (13.4-35.0) L 10/08/17 02:44 [place] % (Auto) 5.7 % (0.0-7.3) 10/08/17 02:44 Eos % (Auto) 0.0 % (0.0-4.3) 10/08/17 02:44 Baso % (Auto) 0.3 % (0.0-1.8) 10/08/17 02:44 Lymph # 0.6 K/mm3 (1.2-5.4) L 10/08/17 02:44 [place] # 0.5 K/mm3 (0.0-0.8) 10/08/17 02:44 Eos # 0.0 K/mm3 (0.0-0.4) 10/08/17 02:44 Baso # 0.0 K/mm3 (0.0-0.1) 10/08/17 02:44 Seg Neutrophils % 87.4 % (40.0-70.0) H 10/08/17 02:44 Seg Neutrophils # 7.9 K/mm3 (1.8-7.7) H 10/08/17 02:44 PT 12.8 Sec. (12.2-14.9) 10/08/17 06:42 INR 0.92 (0.87-1.13) 10/08/17 06:42 APTT 22.5 Sec. (24.2-36.6) L 10/08/17 06:42 Sodium 141 mmol/L (137-145) D 10/09/17 04:53 Potassium 2.3 mmol/L (3.6-5.0) L* 10/09/17 08:11 Chloride 99.5 mmol/L (98-107) 10/09/17 04:53 Carbon Dioxide 29 mmol/L (22-30) 10/09/17 04:53 Anion Gap 15 mmol/L 10/09/17 04:53 BUN 3 mg/dL (7-17) L 10/09/17 04:53 Creatinine 0.4 mg/dL (0.7-1.2) L 10/09/17 04:53 Estimated GFR > 60 ml/min 10/09/17 04:53 BUN/Creatinine Ratio 8 % 10/09/17 04:53 Glucose 78 mg/dL (65-100) 10/09/17 04:53 POC Glucose 83 (70-105) 10/09/17 07:59 Lactic Acid 1.00 mmol/L (0.7-2.0) 10/08/17 06:42 Calcium 8.1 mg/dL (8.4-10.2) L 10/09/17 04:53 Magnesium 2.00 mg/dL (1.7-2.3) 10/09/17 04:53 Total Bilirubin 1.10 mg/dL (0.1-1.2) 10/09/17 04:53 AST 100 units/L (5-40) H 10/09/17 04:53 ALT 30 units/L (7-56) 10/09/17 04:53 Alkaline Phosphatase 93 units/L (35-129) 10/09/17 04:53 Ammonia 27.0 umol/L (25-60) 10/08/17 06:42 Total Creatine Kinase 846 units/L (30-135) H 10/08/17 06:35 Total Protein 5.5 g/dL (6.3-8.2) L D 10/09/17 04:53 Albumin 3.0 g/dL (3.9-5) L 10/09/17 04:53 Albumin/Globulin Ratio 1.2 % 10/09/17 04:53 HCG, Qual Negative (Negative) 10/08/17 02:44 Urine Color Yellow (Yellow) 10/08/17 09:27 Urine Turbidity Clear (Clear) 10/08/17 09:27 Urine pH 6.0 (5.0-7.0) 10/08/17 09:27 Ur Specific Orange 1.009 (1.003-1.030) 10/08/17 09:27 Urine Protein <15 mg/dl mg/dL (Negative) 10/08/17 09:27 Urine Glucose (UA) Neg mg/dL (Negative) 10/08/17 09:27 Urine Ketones 80 mg/dL (Negative) 10/08/17 09:27 Urine Blood Sm (Negative) 10/08/17 09:27 Urine Nitrite Neg (Negative) 10/08/17 09:27 Urine Bilirubin Neg (Negative) 10/08/17 09:27 Urine Urobilinogen < 2.0 mg/dL (<2.0) 10/08/17 09:27 Ur Leukocyte Esterase Neg (Negative) 10/08/17 09:27 Urine WBC (Auto) 2.0 /HPF (0.0-6.0) 10/08/17 09:27 Urine RBC (Auto) 2.0 /HPF (0.0-6.0) 10/08/17 09:27 U Epithel Cells (Auto) 5.0 /HPF (0-13.0) 10/08/17 09:27 Urine Mucus Few /HPF 10/08/17 09:27 Urine Opiates Screen Presumptive negative 10/08/17 09:27 Urine Methadone Screen Presumptive negative 10/08/17 09:27 Ur Barbiturates Screen Presumptive negative 10/08/17 09:27 Ur Phencyclidine Scrn Presumptive negative 10/08/17 09:27 Ur Amphetamines Screen Presumptive negative 10/08/17 09:27 U Benzodiazepines Scrn Presumptive negative 10/08/17 09:27 Urine Cocaine Screen Presumptive positive 10/08/17 09:27 U Marijuana (THC) Screen Presumptive positive 10/08/17 09:27 Drugs of Abuse Note Disclamer 10/08/17 09:27 Plasma/Serum Alcohol 0.02 % (0-0.07) 10/08/17 02:44 - Imaging and Cardiology Chest x-ray: image reviewed (noted pathology) Abdominal x-ray: image reviewed (nonobstructive renalstone) CT Scan - head: image reviewed (no acute pathology noted)
[2017-10-09] MEDS: MAGIC MOUTHWASH PO SCH ×3 (14:30→18:30)
[2017-10-09] MEDS: SODIUM CHLORIDE FLUSH SYRINGE 10 ML IV SCH (17:52)
[2017-10-09 18:09] VITALS: BP 117/79
--- NOTE | 2017-10-10 04:25 | Discharge Summary ---
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 Patient admits to drinking heavily daily and her last drink was yesterday. EMS was called because family member thought she was going into DT. She has associated nausea without vomiting and syncopal episode. She denies headaches, dizziness, chest pain, shortness of breath, palpitation, fever, chills or cough. No abdominal pain, constipation, diarrhea, dysuria or frequency. Treatment plan is as outlined below. PATIENT recieved potassium replacement and insisted to leave with family. she was advised of risk associated with leaving AMA including but not limited to and paralysis Acute alcohol withdrawal -on [facility] protocol Alcohol withdrawal seizure -Seizure precautions -Patient instructed to come into [place] law she is to Driving until cleared by Primary physician or neurologist Syncope secondary to alcohol abuse -Stable Transaminitis secondary to alcohol abuse -Will do further evaluation with abdominal ultrasound Hyponatremia -On IV fluid -will monitor sodium level Hyperkalemia/now with hypokalemia -Replace -On IV fluid -will monitor potassium level Nonobstructive stone -Discussed with patient. Follow urology outpatient History of alcohol dependence -Patient counseled on cessation -Help offered but patient declined History of bipolar disorder -For out patient follow-up Prophylaxis -DVT prophylaxis with SCD -GI prophylaxis with famotidine patient left ama Disposition: DC-07 LEFT AGAINST MED ADVICE Time spent for discharge: 35 mins Core Measure Documentation - Palliative Care Palliative Care/ Comfort Measures: Not Applicable - Core Measures Any of the following diagnoses?: none - VTE Discharge Requirements Deep Vein Thrombosis/Pulmonary Embolism Present on Admission: No Exam - Physical Exam Narrative exam: VITAL SIGNS: Reviewed. GENERAL: The patient appeared well nourished and normally developed. Vital signs as documented. HEAD: No signs of head trauma. EYES: Pupils are equal. Extraocular motions intact. EARS: Hearing grossly intact. MOUTH: lateral tongue laceration NECK: No adenopathy, no JVD. CHEST: Chest with clear breath sounds bilaterally. No wheezes, rales, or rhonchi. CARDIAC: Regular rate and rhythm. S1 and S2, without murmurs, gallops, or rubs. VASCULAR: No Edema. Peripheral pulses normal and equal in all extremities. ABDOMEN: Soft, without detectable tenderness. No sign of distention. No rebound or guarding, and no masses palpated. Bowel Sounds normal. MUSCULOSKELETAL: Good range of motion of all major joints. Extremities without clubbing, cyanosis or edema. NEUROLOGIC EXAM: Awake but lethargic and oriented x 3. No focal sensory or strength deficits. Desaturation noted. Follows commands. PSYCHIATRIC: Mood normal. SKIN: Multiple tattoos, multiple skin blotches lesions. - Constitutional Vitals: Temp Pulse Resp BP Pulse Ox 99.0 F 84 18 117/79 100 10/09/17 18:01 10/09/17 18:01 10/09/17 18:01 10/09/17 18:01 10/09/17 18:01 Plan Activity: no driving until cleared by PCP Special Instructions: smoking cessation, follow up in rehab Follow up with: PRIMARY MD TAYLOR [Primary Care Provider] - 3-5 Days Forms: AMA Form
== END 2017-10-09 20:59 | disposition left against medical advice (07) | DRG 101 ==
LOC: ED 00:30 → 3A 09:52
PROVIDERS: ADMIT Internal Medicine; ATTEND Internal Medicine
PROC: 3E0234Z Introduction of Serum, Toxoid and Vaccine into Muscle, Percutaneous Approach (ICD-10-PCS; principal; 2017-10-08)
DX: G40.89 Other seizures (principal); E87.1 Hypo-osmolality and hyponatremia; Z53.21 Procedure and treatment not carried out due to patient leaving prior to being seen by health care provider; F17.210 Nicotine dependence, cigarettes, uncomplicated; F10.10 Alcohol abuse, uncomplicated; Y90.0 Blood alcohol level of less than 20 mg/100 ml; J45.909 Unspecified asthma, uncomplicated; R74.0 Nonspecific elevation of levels of transaminase and lactic acid dehydrogenase [LDH]; E87.5 Hyperkalemia; R55 Syncope and collapse; K70.9 Alcoholic liver disease, unspecified; F31.9 Bipolar disorder, unspecified; C53.9 Malignant neoplasm of cervix uteri, unspecified; D69.59 Other secondary thrombocytopenia; N20.0 Calculus of kidney; K70.0 Alcoholic fatty liver; E87.6 Hypokalemia; Z71.41 Alcohol abuse counseling and surveillance of alcoholic; Z91.010 Allergy to peanuts; Z81.1 Family history of alcohol abuse and dependence; Z23 Encounter for immunization
CPT/HCPCS: 36415; 70450; 71045; 76705; 80053; 80307; 80320; 81001; 82140; 82550; 82962; 83735; 84132; 84703; 85025; 85610; 85730; 87086; 90732; 93005; 93010; 96361; 96365; 96366; G0480; J2060; J3411; J3475; J3480; J7030